=== PATIENT | male | born 1985 | race Caucasian/White ===

== ENCOUNTER 2022-04-22 20:13 | Emergency (ER) | payer MEDICARE, MEDICAID ==
--- NOTE | 2022-04-22 20:31 | ED General ---
General Chief Complaint: General Problems/Pain Stated Complaint: DIAGNOSED W PROSTATE CANC, PAIN Source of Information: Patient, Family (brother) Exam Limitations: No Limitations History of Present Illness Date Seen by Provider: Apr 22, 2022 Time Seen by Provider: 20:22 Initial Comments 36-year-old male presents to the emergency department today for left flank pain. He states this pain started on Friday, he went to the ER at [place] which is where he was living at the time on . He had a CT scan and was told he had prostate cancer. He moved back here which is where he is from to be closer to family. They tried to prescribe him Toradol at the facility in [place] but he states he could not afford it as it was $14. He denies any fevers or chills. This is the exact same pain that he was having at the time of his ev aluation. He was on antibiotics after his initial diagnosis. He plans to follow-up with [facility] when he establishes care here. He does not have a primary doctor in the area. All other systems reviewed and negative except documented per HPI. Voice recognition software was used to help create this chart Allergies and Home Medications Allergies Coded Allergies: Penicillins (Verified Allergy, Unknown, 04/22/22) Patient Home Medication List Home Medication List Reviewed: Yes Ketorolac Tromethamine (Ketorolac Tromethamine) 10 Mg Tablet, 10 MG PO TID Prescribed by: BREANNA NASH MD on 04/22/222051 Review of Systems Review of Systems Constitutional: no symptoms reported Past Whwrryc-Dzdffs-Ytlupm Hx Patient Social History Tobacco Use?: Yes Use of E-Cig and/or Vaping dev: Yes Substance use?: Yes Alcohol Use?: No Past Medical History Surgery/Hospitalization HX: Prostate Ca Family Medical History Reviewed Nursing Family Hx No Pertinent Family Hx Physical Exam Vital Signs Vital Signs - First Documented 04/22/22 20:20 Pulse 102 Resp 18 B/P (MAP) 115/63 (80) Pulse Ox 98 O2 Delivery Room Air Capillary Refill : Height, Weight, BMI Height: '" Weight: lbs. oz. kg; BMI Method: General Appearance: No Apparent Distress HEENT: Normal ENT Inspection, Pharynx Normal Neck: Full Range of Motion, Normal Inspection, Non Tender, Supple Respiratory: Chest Non Tender, Lungs Clear, Normal Breath Sounds, No Accessory Muscle Use, No Respiratory Distress Cardiovascular: Regular Rate, Rhythm, No Murmur Gastrointestinal: Normal Bowel Sounds, No Organomegaly, No Pulsatile Mass, Non Tender, Soft Back: Normal Inspection, No Vertebral Tenderness, Other (TTP L lower lumbar region lateral. ) Extremity: Normal Capillary Refill, Non Tender Neurologic/Psychiatric: Alert, Oriented x3 Skin: Normal Color, Warm/Dry Progress/Results/Core Measures Suspected Sepsis SIRS Temperature: Pulse: Respiratory Rate: Blood Pressure / Mean: Results/Orders Lab Results Laboratory Tests Test 04/22/22 20:30 Range/Units Urine Color DK YELLOW Urine Clarity CLEAR Urine pH 6.0 5-9 Urine Specific Sandy 1.025 H 1.016-1.022 Urine Protein 2+ H NEGATIVE Urine Glucose (UA) NEGATIVE NEGATIVE Urine Ketones NEGATIVE NEGATIVE Urine Nitrite NEGATIVE NEGATIVE Urine Bilirubin 1+ H NEGATIVE Urine Urobilinogen 4.0 < = 1.0 MG/DL Urine Leukocyte Esterase NEGATIVE NEGATIVE Urine RBC (Auto) TRACE-I H NEGATIVE Urine RBC RARE /HPF Urine WBC 2-5 /HPF Urine Squamous Epithelial Cells NONE /HPF Urine Crystals NONE /LPF Urine Bacteria NEGATIVE /HPF Urine Casts NONE /LPF Urine Mucus SMALL H /LPF Urine Culture Indicated NO My Orders Orders - BREANNA NASH DO Ua Culture If Indicated (04/22/22 20:31) Ketorolac Injection (Toradol Injection) (04/22/22 20:45) Medications Given in ED Current Medications Medications Dose Ordered Sig/Sheyla Route Start Time Stop Time Status Last Admin Dose Admin Ketorolac Tromethamine 15 mg ONCE ONCE IM 04/22/22 20:45 04/22/22 20:46 DC 04/22/22 20:36 15 MG Vital Signs/I&O 04/22/22 04/22/22 20:20 20:51 Pulse 102 102 Resp 18 18 B/P (MAP) 115/63 (80) 115/63 Pulse Ox 98 98 O2 Delivery Room Air Room Air Capillary Refill : Departure Communication (Admissions) Patient is hemodynamically stable. He had a full work-up and reportedly was recently diagnosed his prostate cancer based on CT findings. He is in the process of following up with [facility], they are requiring his records. He will establish care with [facility] here. He is given Toradol for pain control which she states worked for him before. UA is without infection. He is discharged in stable condition with otherwise supportive care. Impression Primary Impression: Back pain Qualified Codes: M54.50 - Low back pain, unspecified Disposition: 01 HOME, SELF-CARE Condition: Stable Departure-Patient Inst. Add. Discharge Instructions: Call to establish care with the [facility] clinic here in this building. Continue to follow-up with [facility] for further treatment of reported prostate cancer. Take the Toradol as needed. Do not take other anti-inflammatory medicines while taking this. All discharge instructions reviewed with patient and/or family. Voiced understanding. Scripts Ketorolac Tromethamine (Ketorolac Tromethamine) 10 Mg Tablet 10 MG PO TID for Pain for 4 Days, #12 TAB Prov: BREANNA NASH DO 04/22/22 BREANNA NASH DO Apr 22, 2022 20:31
[2022-04-22 20:37] LABS: CLARITY,URINE CLEAR; GLUCOSE, URINE (UA) NEGATIVE (NEGATIVE); KETONES,URINE NEGATIVE (NEGATIVE); LEUKOCYTE ESTERASE ,URINE NEGATIVE (NEGATIVE); NITRITE,URINE NEGATIVE (NEGATIVE); PROTEIN,URINE 2+ (NEGATIVE)
[2022-04-22] MEDS ORDERED: KETOROLAC 15 MG/ML VIAL IM ONE (20:45)
[2022-04-22 20:48] LABS: BACTERIA,URINE NEGATIVE /HPF; COLOR,URINE DK YELLOW; RBC,URINE RARE /HPF
[2022-04-22 20:51] VITALS: BP 115/63
[2022-04-22 20:51] LABS: BILIRUBIN,URINE 1+ (NEGATIVE)
[2022-04-22] MEDS ORDERED: KETO10TA PO (20:52)
== END 2022-04-22 20:55 | disposition home or self-care (01) ==
LOC: ER FS 20:19
DX: M54.50 Low back pain, unspecified (principal); F17.200 Nicotine dependence, unspecified, uncomplicated; Z28.310 Unvaccinated for COVID-19
CPT/HCPCS: 81000; 99284

== ENCOUNTER 2022-04-24 13:01 | Outpatient (RCR) | payer MEDICARE, MEDICAID ==
[~2022-04-24 13:01] MED LIST: KETO10TA PO
[2022-04-24 15:05] LABS: BASOPHILS % (AUTO) 0 % (0-10); EOSINOPHILS # (AUTO) 0.3 10^3/uL (0.0-0.3); EOSINOPHILS % (AUTO) 4 % (0-10); HEMATOCRIT 42 % (40-54); HEMOGLOBIN 13.8 g/dL (13.3-17.7); LYMPHOCYTES # (AUTO) 1.8 10^3/uL (1.0-4.0); LYMPHOCYTES % (AUTO) 23 % (12-44); MEAN CORPUSCULAR HEMOGLOBIN 28 pg (25-34); MEAN CORPUSCULAR HGB CONC 33 g/dL (32-36); MEAN CORPUSCULAR VOLUME 85 fL (80-99); MEAN PLATELET VOLUME 9.5 fL (9.0-12.2); MONOCYTES # (AUTO) 0.8 10^3/uL (0.0-1.0); MONOCYTES % (AUTO) 10 % (0-12); NEUTROPHILS % (AUTO) 62 % (42-75); PLATELET COUNT 389 10^3/uL (130-400)
[2022-04-24 15:23] LABS: ALBUMIN 4.2 GM/DL (3.2-4.5); BILIRUBIN,TOTAL 0.9 MG/DL (0.1-1.0); CALCIUM 9.9 MG/DL (8.5-10.1); POTASSIUM 4.4 MMOL/L (3.6-5.0); TOTAL PROTEIN 8.2 GM/DL (6.4-8.2)
[2022-04-24 15:30] LABS: INR 1.1 (0.8-1.4); PROTHROMBIN TIME PATIENT 14.9 SEC (12.2-14.7)
== END 2022-05-10 | disposition home or self-care (01) ==
LOC: ONC 13:01
PROVIDERS: ATTEND Internal Medicine Hematology & Oncology
DX: C61 Malignant neoplasm of prostate (principal); N50.9 Disorder of male genital organs, unspecified
CPT/HCPCS: 80053; 82105; 83615; 85025; 85610; 85730